=== PATIENT | female | born 1965 | race Caucasian/White ===

== ENCOUNTER 2023-11-13 16:25 | Emergency (ER) | payer BC ==
[~2023-11-13] VITALS: Ht 172.7 cm; Wt 73.0 kg
[2023-11-13] MEDS ORDERED: ACETAMINOPHEN ES 500 MG TABLET ONE (17:33)
[2023-11-13] MEDS ORDERED: IBUPROFEN 600 MG TABLET ONE (17:33)
[2023-11-13] MEDS: ACETAMINOPHEN ES 500 MG TABLET PO ONE (17:36)
[2023-11-13] MEDS: IBUPROFEN 600 MG TABLET PO ONE (17:36)
[2023-11-13] MEDS ORDERED: LIDOCAINE 1%-EPI 1:100,000 20 ML VIAL ONE (17:47)
[2023-11-13] MEDS ORDERED: IBUP-1955 PO (18:17)
[2023-11-13] MEDS ORDERED: CYCL5TAB PO (18:17)
[2023-11-13] MEDS ORDERED: ACET-2605 PO (18:17)
[2023-11-13 18:40] VITALS: BP 122/78; TEMP 98.2; O2SAT 100
== END 2023-11-13 18:40 | disposition home or self-care (01) ==
LOC: ER 16:25
DX: S31.010A Laceration without foreign body of lower back and pelvis without penetration into retroperitoneum, initial encounter (principal); Z88.2 Allergy status to sulfonamides; W18.30XA Fall on same level, unspecified, initial encounter; Y93.89 Activity, other specified; Y92.89 Other specified places as the place of occurrence of the external cause; Y99.8 Other external cause status
CPT/HCPCS: 99283; 12001; A6403; J3490